=== PATIENT | female | born 1975 | race Hispanic/Latino ===

== ENCOUNTER 2020-08-26 18:22 | Inpatient (IN) | payer OTHER ==
[~2020-08-26] VITALS: Ht 165.1 cm; Wt 129.8 kg
[2020-08-26 18:37] LABS: ABG BASE EXCESS -3.5 mmol/L (-2.0-3.0); ABG HCO3 20.1 mmol/L (21.0-28.0); ABG OXYGEN SATURATION 86.7 % (95.0-99.0); ABG PCO2 33 mmHg (32-45)
[2020-08-26 19:17] LABS: BASOPHILS % (AUTO) 0.2 % (0.0-5.0); HEMATOCRIT 36.5 % (36-48); LYMPHOCYTES % (AUTO) 11.9 % (21.0-51.0); MEAN CORPUSCULAR HEMOGLOBIN 26.1 pg (27.0-33.0); MEAN CORPUSCULAR HGB CONC 31.8 g/dL (32.0-36.0); MEAN CORPUSCULAR VOLUME 82.2 fL (79-99); MONOCYTES % (AUTO) 3.5 % (3.0-13.0); NEUTROPHILS % (AUTO) 83.8 % (40.0-77.0); PLATELET COUNT (AUTO) 368 K/uL (130-400); RED BLOOD CELL COUNT(AUTO) 4.44 MIL/uL (4.00-5.50); RED CELL DISTRIBUTION WIDTH 14.9 % (11.0-15.5); WHITE BLOOD COUNT (AUTO) 12.6 K/uL (4.8-10.8)
[2020-08-26 19:35] LABS: INR 1.03 (0.85-1.15)
[2020-08-26 19:37] LABS: PARTIAL THROMBOPLASTIN TIME 27.6 SEC (26.3-35.5)
[2020-08-26] MEDS ORDERED: PHARMACY COMMUNICATION**REMDESIVIR ORDER MISC SCH (19:45)
[2020-08-26 19:51] LABS: ALANINE AMINOTRANSFERASE 18 U/L (12-78); ASPARTATE AMINOTRANSFERASE 25 U/L (10-37); BILIRUBIN,TOTAL 0.3 mg/dL (0.2-1.0); CARBON DIOXIDE 23 mmol/L (21-32); CHLORIDE 95 mmol/L (101-111); CREATINE KINASE, TOTAL 49 U/L (21-232); CREATININE 1.2 mg/dL (0.5-1.5); GLOMERULAR FILTR. RATE CALC 51 mL/min (>60); MYOGLOBIN 36 ng/mL (10-92); SODIUM SERUM 133 mmol/L (136-145); TOTAL PROTEIN, SERUM 8.4 g/dL (6.0-8.3); TROPONIN I < 0.04 ng/mL (0.00-0.06); UREA NITROGEN, BLOOD 15 mg/dL (7-18)
[2020-08-26 19:58] LABS: GLUCOSE,RANDOM 405 mg/dL (70-105)
[2020-08-26] MEDS ORDERED: LACTULOSE 20 GM/30 ML UDCUP PO PRN (20:00)
[2020-08-26] MEDS ORDERED: ACETAMINOPHEN 325 MG TAB PO PRN (20:00)
[2020-08-26] MEDS ORDERED: ERGOCALCIFEROL (VITAMIN D2) 50,000 UNIT CAPSULE PO ONE (20:00)
[2020-08-26] MEDS ORDERED: GUAIFENESIN-DM 200/20 MG 10 ML PO PRN (20:00)
[2020-08-26] MEDS: CEFEPIME HCL 2 GM VIAL IVP SCH (20:00)
[2020-08-26] MEDS ORDERED: DIPHENHYDRAMINE HCL 25 MG CAPSULE PO PRN (20:00)
[2020-08-26] MEDS ORDERED: ALBUTEROL SULFATE 0.083% 2.5 MG/3 ML INH IH PRN (20:00)
[2020-08-26] MEDS ORDERED: CEFTRIAXONE SODIUM 1 GM IVP SCH (20:00)
[2020-08-26] MEDS ORDERED: DEXAMETHASONE 10MG/ML 1ML VIAL 10 MG in SODIUM CHLORIDE 0.9% 50 ML IV SCH (20:00)
[2020-08-26] MEDS ORDERED: DiphenhydrAMINE HCL 50 MG/ML VIAL IV PRN (20:00)
[2020-08-26] MEDS ORDERED: NITROGLYCERIN 0.4 MG SL TAB SL PRN (20:00)
[2020-08-26] MEDS ORDERED: ONDANSETRON HCL 4 MG/2 ML VIAL IV PRN (20:00)
[2020-08-26] MEDS ORDERED: MAG HYDROX/AL HYDROX/SIMETH ES 30 ML SUSP UDCUP PO PRN (20:00)
[2020-08-26 20:02] LABS: ALBUMIN 2.6 g/dL (3.5-5.0)
[2020-08-26] MEDS ORDERED: DEXAMETHASONE SOD PHOSPHATE 10MG/ML 1ML VIAL IV SCH (20:15)
[2020-08-26] MEDS ORDERED: LINEZOLID 600 MG/ISO-OSM 300 ML IV SCH (20:15)
[2020-08-26] MEDS ORDERED: POTASSIUM CHLORIDE 10% ELIXIR 20 MEQ/15 ML UDCUP PO PRN (20:15)
[2020-08-26] MEDS ORDERED: DEXTROSE 50%-WATER 50 ML DISP.SYRIN IV PRN (20:15)
[2020-08-26] MEDS ORDERED: GLUCAGON 1MG KIT 1 MG ML IM PRN (20:15)
[2020-08-26] MEDS: INSULIN GLARGINE 100 UNITS/ML 10 ML VIAL SQ SCH ×2 (20:15→21:00)
[2020-08-26] MEDS ORDERED: POTASSIUM CHLORIDE 20MEQ/100ML 100 ML IV PRN ×2 (20:15)
[2020-08-26] MEDS ORDERED: VANCOMYCIN PROTOCOL PER PHARMACY IV SCH (20:30)
[2020-08-26] MEDS ORDERED: COMPOUND IV REFRIGERATED 1 EACH IVSOLN MISC PRN ×2 (20:30→21:30)
[2020-08-26 20:47] LABS: APPEARANCE,URINE Turbid (CLEAR); BILIRUBIN,URINE Negative (NEGATIVE); COLOR,URINE Dark Yellow (YELLOW); GLUCOSE, URINE (UA) >=1000 mg/dL (NEGATIVE); KETONES,URINE 15 mg/dL (NEGATIVE); LEUKOCYTE ESTERASE ,URINE Negative (NEGATIVE); NITRATE,URINE Positive (NEGATIVE); OCCULT BLOOD,URINE Large (NEGATIVE); PH,URINE 5.5 (5.0-8.0); PROTEIN,URINE 300 mg/dL (NEGATIVE)
[2020-08-26 20:53] LABS: BACTERIA,URINE Moderate /HPF (None Seen)
[2020-08-26 20:54] LABS: SQUAMOUS EPITHELIAL CELL,UR 0-2 /HPF (0-2)
[2020-08-26] MEDS: FAMOTIDINE/PF 20 MG/2 ML VIAL IV SCH (21:00)
[2020-08-26] MEDS: ENOXAPARIN SODIUM 80 MG/0.8 ML SQ SCH (21:00)
[2020-08-26] MEDS: INSULIN HUMULIN R 100 UNIT/ML 3ML SQ SCH (21:00)
[2020-08-26] MEDS: DOXYCYCLINE HYCLATE 100 MG TABLET PO SCH (21:00)
[2020-08-26] MEDS: VANCOMYCIN 1.5 GM in SODIUM CHLORIDE 0.9% 250 ML IV SCH (21:00)
[2020-08-26] MEDS: COLCHICINE 0.6 MG TABLET PO SCH (21:00)
[2020-08-26] MEDS ORDERED: DOXYCYCLINE HYCLATE 100 MG TABLET PO ONE (21:28)
[2020-08-26] MEDS ORDERED: ENOXAPARIN SODIUM 80 MG/0.8 ML SQ ONE (21:28)
[2020-08-26] MEDS ORDERED: ALBUTEROL INHALER 90MCG/INH IH ONE (21:28)
[2020-08-26] MEDS ORDERED: DEXAMETHASONE SOD PHOSPHATE 10MG/ML 1ML VIAL ONE (21:29)
[2020-08-26] MEDS ORDERED: ERGOCALCIFEROL (VITAMIN D2) 50,000 UNIT CAPSULE ONE (21:29)
[2020-08-26] MEDS ORDERED: CEFEPIME HCL 2 GM VIAL ONE (21:30)
[2020-08-26] MEDS ORDERED: CEFTRIAXONE SODIUM 1 GM ONE (21:30)
[2020-08-26] MEDS ORDERED: REMDESIVIR (EUA) 520 200 MG in SODIUM CHLORIDE 0.9% 250 ML IV SCH (21:30)
[2020-08-26] MEDS ORDERED: FAMOTIDINE/PF 20 MG/2 ML VIAL IV ONE (21:31)
[2020-08-26] MEDS ORDERED: INSULIN HUMULIN R 100 UNIT/ML 3ML ONE (21:32)
[2020-08-26] MEDS: FUROSEMIDE 10 MG/ML 2ML VIAL IV SCH (22:15)
[2020-08-26] MEDS ORDERED: FUROSEMIDE 10 MG/ML 2ML VIAL ONE (23:56)
[2020-08-27] MEDS ORDERED: ACETAMINOPHEN 325 MG TAB ONE (03:31)
[2020-08-27] MEDS: REMDESIVIR LABS MISC SCH (06:00)
[2020-08-27 06:07] LABS: BASOPHILS % (AUTO) 0.2 % (0.0-5.0); HEMATOCRIT 33.9 % (36-48); LYMPHOCYTES % (AUTO) 11.8 % (21.0-51.0); MEAN CORPUSCULAR HEMOGLOBIN 25.6 pg (27.0-33.0); MEAN CORPUSCULAR HGB CONC 30.4 g/dL (32.0-36.0); MEAN CORPUSCULAR VOLUME 84.1 fL (79-99); MONOCYTES % (AUTO) 2.6 % (3.0-13.0); NEUTROPHILS % (AUTO) 84.5 % (40.0-77.0); PLATELET COUNT (AUTO) 358 K/uL (130-400); RED BLOOD CELL COUNT(AUTO) 4.03 MIL/uL (4.00-5.50); RED CELL DISTRIBUTION WIDTH 15.1 % (11.0-15.5)
[2020-08-27] MEDS ORDERED: INSULIN HUMULIN R 100 UNIT/ML 3ML ONE ×4 (06:12→17:17)
[2020-08-27 06:30] LABS: ALBUMIN 2.4 g/dL (3.5-5.0); BILIRUBIN,TOTAL 0.2 mg/dL (0.2-1.0); CREATININE 1.2 mg/dL (0.5-1.5); POTASSIUM 4.7 mmol/L (3.5-5.1)
[2020-08-27 07:05] LABS: CRP QUANTITATIVE 313.2 mg/L (0.00-9.0)
[2020-08-27] MEDS ORDERED: INSULIN HUMULIN R 100 UNIT/ML 3ML SQ SCH (07:30)
[2020-08-27] MEDS: INSULIN HUMULIN R 100 UNIT/ML 3ML SQ SCH (07:30)
[2020-08-27] MEDS: DEXAMETHASONE SOD PHOSPHATE 4 MG/ML 1ML VIAL IVP SCH (08:00)
[2020-08-27] MEDS ORDERED: ASCORBIC ACID 500 MG TAB ONE (08:51)
[2020-08-27] MEDS ORDERED: DOXYCYCLINE HYCLATE 100 MG TABLET PO ONE (08:51)
[2020-08-27] MEDS ORDERED: DEXAMETHASONE SOD PHOSPHATE 10MG/ML 1ML VIAL ONE (08:51)
[2020-08-27] MEDS ORDERED: ENOXAPARIN SODIUM 80 MG/0.8 ML SQ ONE (08:51)
[2020-08-27] MEDS ORDERED: VANCOMYCIN 1GM+NS 250ML 250 ML IV ONE (08:52)
[2020-08-27] MEDS ORDERED: ZINC SULFATE 220 CAPSULE ONE (08:52)
[2020-08-27] MEDS ORDERED: FAMOTIDINE/PF 20 MG/2 ML VIAL IV ONE (08:53)
[2020-08-27] MEDS: VANCOMYCIN 1.5 GM in SODIUM CHLORIDE 0.9% 250 ML IV SCH (09:00)
[2020-08-27] MEDS: INSULIN GLARGINE 100 UNITS/ML 10 ML VIAL SQ SCH ×2 (09:00→21:00)
[2020-08-27] MEDS: FAMOTIDINE/PF 20 MG/2 ML VIAL IV SCH (09:00)
[2020-08-27] MEDS: DOXYCYCLINE HYCLATE 100 MG TABLET PO SCH (21:00)
[2020-08-27] MEDS: COLCHICINE 0.6 MG TABLET PO SCH (21:00)
[2020-08-28] VITALS: BP 131/77
[2020-08-28] MEDS: CEFEPIME HCL 2 GM VIAL IVP SCH ×2 (01:45→22:44)
[2020-08-28] MEDS: FUROSEMIDE 10 MG/ML 2ML VIAL IV SCH ×2 (01:46→22:15)
[2020-08-28] MEDS: VANCOMYCIN 1.5 GM in SODIUM CHLORIDE 0.9% 250 ML IV SCH ×3 (01:47→22:46)
[2020-08-28] MEDS: FAMOTIDINE/PF 20 MG/2 ML VIAL IV SCH ×3 (01:47→10:13)
[2020-08-28] MEDS: ENOXAPARIN SODIUM 80 MG/0.8 ML SQ SCH ×3 (02:04→22:45)
[2020-08-28 03:43] VITALS: BP 124/76
[2020-08-28] MEDS: REMDESIVIR LABS MISC SCH (06:00)
[2020-08-28 06:15] LABS: BASOPHILS % (AUTO) 0.2 % (0.0-5.0); EOSINOPHILS % (AUTO) 0.1 % (0.0-8.0); HEMATOCRIT 34.6 % (36-48); LYMPHOCYTES % (AUTO) 16.8 % (21.0-51.0); MEAN CORPUSCULAR HGB CONC 31.2 g/dL (32.0-36.0); MEAN CORPUSCULAR VOLUME 83.2 fL (79-99); PLATELET COUNT (AUTO) 472 K/uL (130-400); RED BLOOD CELL COUNT(AUTO) 4.16 MIL/uL (4.00-5.50); RED CELL DISTRIBUTION WIDTH 14.8 % (11.0-15.5); WHITE BLOOD COUNT (AUTO) 13.4 K/uL (4.8-10.8)
[2020-08-28 07:01] LABS: CRP QUANTITATIVE 173.7 mg/L (0.00-9.0)
[2020-08-28 07:02] LABS: ABG BASE EXCESS 3.8 mmol/L (-2.0-3.0); ABG OXYGEN SATURATION 90.9 % (95.0-99.0); ABG PCO2 41 mmHg (32-45)
[2020-08-28 07:16] LABS: ALBUMIN 2.5 g/dL (3.5-5.0); BILIRUBIN,TOTAL 0.3 mg/dL (0.2-1.0); CREATININE 1.3 mg/dL (0.5-1.5); POTASSIUM 3.3 mmol/L (3.5-5.1); TOTAL PROTEIN, SERUM 7.9 g/dL (6.0-8.3)
[2020-08-28] MEDS: INSULIN HUMULIN R 100 UNIT/ML 3ML SQ SCH ×7 (07:30→20:50)
[2020-08-28 08:00] VITALS: BP 137/88
[2020-08-28] MEDS: INSULIN GLARGINE 100 UNITS/ML 10 ML VIAL SQ SCH (09:00)
[2020-08-28] MEDS ORDERED: BUPR-48 PO (09:16)
[2020-08-28] MEDS ORDERED: NALT50TA PO (09:16)
[2020-08-28] MEDS ORDERED: GLIP10TA9 PO (09:16)
[2020-08-28] MEDS ORDERED: NALT50TA5 PO (09:16)
[2020-08-28] MEDS ORDERED: CHOL500050 PO (09:16)
[2020-08-28] MEDS ORDERED: LISI1TAB51 PO (09:16)
[2020-08-28] MEDS ORDERED: METF-446 PO (09:16)
[2020-08-28] MEDS ORDERED: ROSU5TAB12 PO (09:16)
[2020-08-28] MEDS ORDERED: LISI40TA9 PO (09:16)
[2020-08-28] MEDS: ASCORBIC ACID 500 MG TAB PO SCH ×2 (10:02→10:12)
[2020-08-28] MEDS: ZINC SULFATE 220 CAPSULE PO SCH ×2 (10:03→10:12)
[2020-08-28] MEDS: DOXYCYCLINE HYCLATE 100 MG TABLET PO SCH ×3 (10:03→22:45)
[2020-08-28] MEDS: COLCHICINE 0.6 MG TABLET PO SCH ×3 (10:03→22:45)
[2020-08-28] MEDS: DEXAMETHASONE SOD PHOSPHATE 4 MG/ML 1ML VIAL IVP SCH ×2 (10:05→10:12)
[2020-08-28] MEDS ORDERED: INSULIN GLARGINE 100 UNITS/ML 10 ML VIAL SQ SCH (10:15)
[2020-08-28 12:00] VITALS: BP 132/82
[2020-08-28] MEDS: REMDESIVIR (EUA) 520 100 MG in SODIUM CHLORIDE 0.9% 250 ML IV SCH ×2 (14:17→18:32)
[2020-08-28 16:00] VITALS: BP 134/76
[2020-08-28 20:42] VITALS: BP 130/79
[2020-08-29 00:35] VITALS: BP 141/80
[2020-08-29 05:25] LABS: BASOPHILS % (AUTO) 0.3 % (0.0-5.0); EOSINOPHILS % (AUTO) 0.2 % (0.0-8.0); HEMATOCRIT 33.8 % (36-48); LYMPHOCYTES % (AUTO) 17.6 % (21.0-51.0); MEAN CORPUSCULAR HEMOGLOBIN 25.4 pg (27.0-33.0); MEAN CORPUSCULAR HGB CONC 30.5 g/dL (32.0-36.0); MEAN CORPUSCULAR VOLUME 83.5 fL (79-99); MONOCYTES % (AUTO) 7.4 % (3.0-13.0); NEUTROPHILS % (AUTO) 73.1 % (40.0-77.0); PLATELET COUNT (AUTO) 463 K/uL (130-400); RED BLOOD CELL COUNT(AUTO) 4.05 MIL/uL (4.00-5.50); RED CELL DISTRIBUTION WIDTH 14.7 % (11.0-15.5); WHITE BLOOD COUNT (AUTO) 12.7 K/uL (4.8-10.8)
[2020-08-29 05:42] LABS: ALBUMIN 2.2 g/dL (3.5-5.0); BILIRUBIN,TOTAL 0.3 mg/dL (0.2-1.0); CREATININE 1.4 mg/dL (0.5-1.5); CRP QUANTITATIVE 98.8 mg/L (0.00-9.0); POTASSIUM 3.3 mmol/L (3.5-5.1); TOTAL PROTEIN, SERUM 7.4 g/dL (6.0-8.3)
[2020-08-29] MEDS: REMDESIVIR LABS MISC SCH (06:00)
[2020-08-29 06:16] VITALS: BP 153/77
[2020-08-29] MEDS: INSULIN HUMULIN R 100 UNIT/ML 3ML SQ SCH ×7 (07:30→22:23)
[2020-08-29 08:33] VITALS: BP 133/70
[2020-08-29] MEDS: INSULIN GLARGINE 100 UNITS/ML 10 ML VIAL SQ SCH ×2 (09:00→10:00)
[2020-08-29] MEDS: VANCOMYCIN 1.5 GM in SODIUM CHLORIDE 0.9% 250 ML IV SCH (09:00)
[2020-08-29] MEDS: DOXYCYCLINE HYCLATE 100 MG TABLET PO SCH ×2 (10:20→22:21)
[2020-08-29] MEDS: ZINC SULFATE 220 CAPSULE PO SCH (10:20)
[2020-08-29] MEDS: COLCHICINE 0.6 MG TABLET PO SCH (10:20)
[2020-08-29] MEDS: FAMOTIDINE/PF 20 MG/2 ML VIAL IV SCH ×3 (10:21→22:26)
[2020-08-29] MEDS: ENOXAPARIN SODIUM 80 MG/0.8 ML SQ SCH ×2 (10:21→22:21)
[2020-08-29] MEDS: ASCORBIC ACID 500 MG TAB PO SCH (10:21)
[2020-08-29] MEDS ORDERED: POTASSIUM CHLORIDE 20 MEQ ERTAB PO SCH (11:45)
[2020-08-29] MEDS ORDERED: POTASSIUM CHLORIDE 10% ELIXIR 20 MEQ/15 ML UDCUP PO PRN (11:45)
[2020-08-29] MEDS ORDERED: POTASSIUM CHLORIDE 20 MEQ ERTAB PO PRN (11:45)
[2020-08-29] MEDS ORDERED: LIDOCAINE HCL-MPF 1% 2ML VIAL IV PRN (11:45)
[2020-08-29] MEDS ORDERED: POTASSIUM CHLORIDE 20MEQ/100ML 100 ML IV PRN (11:45)
[2020-08-29 12:20] VITALS: BP 137/85
[2020-08-29 16:34] VITALS: BP 127/48
[2020-08-29 19:00] VITALS: BP 135/77
[2020-08-29] MEDS ORDERED: INSULIN GLARGINE 100 UNITS/ML 10 ML VIAL SQ SCH (21:00)
[2020-08-29] MEDS: FUROSEMIDE 10 MG/ML 2ML VIAL IV SCH (22:15)
[2020-08-29] MEDS: CEFEPIME HCL 2 GM VIAL IVP SCH (22:20)
[2020-08-29] MEDS: REMDESIVIR (EUA) 520 100 MG in SODIUM CHLORIDE 0.9% 250 ML IV SCH (22:21)
[2020-08-30] VITALS: BP 138/77
[2020-08-30] MEDS ORDERED: LORAZEPAM 2 MG/ML 1 ML VIAL IVP PRN (01:50)
[2020-08-30 04:00] VITALS: BP 112/63
[2020-08-30 05:24] LABS: CREATININE 1.2 mg/dL (0.5-1.5); MAGNESIUM 1.7 mg/dL (1.80-2.40); POTASSIUM 3.1 mmol/L (3.5-5.1)
[2020-08-30] MEDS: REMDESIVIR LABS MISC SCH (06:00)
[2020-08-30 06:15] LABS: BASOPHILS % (AUTO) 0.2 % (0.0-5.0); EOSINOPHILS % (AUTO) 1.2 % (0.0-8.0); HEMATOCRIT 33.3 % (36-48); LYMPHOCYTES % (AUTO) 15.5 % (21.0-51.0); MEAN CORPUSCULAR HEMOGLOBIN 25.8 pg (27.0-33.0); MEAN CORPUSCULAR HGB CONC 30.9 g/dL (32.0-36.0); MEAN CORPUSCULAR VOLUME 83.3 fL (79-99); MONOCYTES % (AUTO) 6.3 % (3.0-13.0); NEUTROPHILS % (AUTO) 75.7 % (40.0-77.0); PLATELET COUNT (AUTO) 514 K/uL (130-400); RED CELL DISTRIBUTION WIDTH 14.8 % (11.0-15.5); WHITE BLOOD COUNT (AUTO) 12.6 K/uL (4.8-10.8)
[2020-08-30 06:41] LABS: ALBUMIN 2.1 g/dL (3.5-5.0); BILIRUBIN,TOTAL 0.3 mg/dL (0.2-1.0); CRP QUANTITATIVE 151.8 mg/L (0.00-9.0); TOTAL PROTEIN, SERUM 7.2 g/dL (6.0-8.3)
[2020-08-30] MEDS: INSULIN HUMULIN R 100 UNIT/ML 3ML SQ SCH ×7 (07:30→20:22)
[2020-08-30 09:06] VITALS: BP 136/85
[2020-08-30] MEDS: ASCORBIC ACID 500 MG TAB PO SCH (09:51)
[2020-08-30] MEDS: DOXYCYCLINE HYCLATE 100 MG TABLET PO SCH ×2 (09:51→20:19)
[2020-08-30] MEDS: ZINC SULFATE 220 CAPSULE PO SCH (09:51)
[2020-08-30] MEDS: DEXAMETHASONE SOD PHOSPHATE 4 MG/ML 1ML VIAL IVP SCH (09:51)
[2020-08-30] MEDS: ENOXAPARIN SODIUM 80 MG/0.8 ML SQ SCH ×2 (09:52→20:29)
[2020-08-30] MEDS ORDERED: LORAZEPAM 0.5 MG TABLET PO SCH (10:00)
[2020-08-30 11:52] VITALS: BP 135/83
[2020-08-30] MEDS: POTASSIUM CHLORIDE 20 MEQ ERTAB PO PRN ×2 (14:23→17:06)
[2020-08-30 15:57] VITALS: BP 111/72
[2020-08-30 20:00] VITALS: BP 115/80
[2020-08-30] MEDS: FAMOTIDINE/PF 20 MG/2 ML VIAL IV SCH (20:19)
[2020-08-30] MEDS: CEFEPIME HCL 2 GM VIAL IVP SCH (20:19)
[2020-08-30] MEDS: LORAZEPAM 0.5 MG TABLET PO SCH (20:19)
[2020-08-30] MEDS: REMDESIVIR (EUA) 520 100 MG in SODIUM CHLORIDE 0.9% 250 ML IV SCH (20:30)
[2020-08-30] MEDS: FUROSEMIDE 10 MG/ML 2ML VIAL IV SCH (21:07)
[2020-08-31] VITALS: BP 130/68
[2020-08-31 04:00] VITALS: BP 133/58
[2020-08-31] MEDS: REMDESIVIR LABS MISC SCH (06:22)
[2020-08-31] MEDS: INSULIN HUMULIN R 100 UNIT/ML 3ML SQ SCH ×7 (06:22→21:19)
[2020-08-31 06:37] LABS: BASOPHILS % (AUTO) 0.2 % (0.0-5.0); EOSINOPHILS % (AUTO) 2.1 % (0.0-8.0); HEMATOCRIT 33.8 % (36-48); LYMPHOCYTES % (AUTO) 9.6 % (21.0-51.0); MEAN CORPUSCULAR HEMOGLOBIN 25.2 pg (27.0-33.0); MEAN CORPUSCULAR HGB CONC 30.5 g/dL (32.0-36.0); MEAN CORPUSCULAR VOLUME 82.8 fL (79-99); MONOCYTES % (AUTO) 5.8 % (3.0-13.0); NEUTROPHILS % (AUTO) 80.8 % (40.0-77.0); PLATELET COUNT (AUTO) 538 K/uL (130-400); RED BLOOD CELL COUNT(AUTO) 4.08 MIL/uL (4.00-5.50); RED CELL DISTRIBUTION WIDTH 14.8 % (11.0-15.5); WHITE BLOOD COUNT (AUTO) 16.3 K/uL (4.8-10.8)
[2020-08-31 06:58] LABS: BILIRUBIN,TOTAL 0.2 mg/dL (0.2-1.0); CREATININE 1.4 mg/dL (0.5-1.5); POTASSIUM 3.5 mmol/L (3.5-5.1); TOTAL PROTEIN, SERUM 7.3 g/dL (6.0-8.3)
[2020-08-31 07:17] LABS: CRP QUANTITATIVE 193.4 mg/L (0.00-9.0)
[2020-08-31 08:00] VITALS: BP 143/73
[2020-08-31] MEDS: INSULIN GLARGINE 100 UNITS/ML 10 ML VIAL SQ SCH (09:00)
[2020-08-31] MEDS: DEXAMETHASONE SOD PHOSPHATE 4 MG/ML 1ML VIAL IVP SCH (09:27)
[2020-08-31] MEDS: FAMOTIDINE/PF 20 MG/2 ML VIAL IV SCH ×2 (09:30→20:33)
[2020-08-31] MEDS: ZINC SULFATE 220 CAPSULE PO SCH (09:34)
[2020-08-31] MEDS: ACETAMINOPHEN 325 MG TAB PO PRN (09:34)
[2020-08-31] MEDS: DOXYCYCLINE HYCLATE 100 MG TABLET PO SCH (09:34)
[2020-08-31] MEDS: ASCORBIC ACID 500 MG TAB PO SCH (09:35)
[2020-08-31] MEDS: ENOXAPARIN SODIUM 80 MG/0.8 ML SQ SCH ×2 (09:36→20:35)
[2020-08-31] MEDS ORDERED: PHARMACY COMMUNICATION MISC SCH (10:30)
[2020-08-31 12:00] VITALS: BP 123/60
[2020-08-31] MEDS ORDERED: VANCOMYCIN 1.5 GM in SODIUM CHLORIDE 0.9% 250 ML IV SCH (12:00)
[2020-08-31] MEDS ORDERED: COMPOUND IV REFRIGERATED 1 EACH IVSOLN MISC PRN (12:00)
[2020-08-31] MEDS ORDERED: INSULIN GLARGINE 100 UNITS/ML 10 ML VIAL SQ SCH (12:00)
[2020-08-31] MEDS: FUROSEMIDE 10 MG/ML 2ML VIAL IV SCH ×2 (14:31→21:57)
[2020-08-31 15:45] LABS: APPEARANCE,URINE Cloudy (CLEAR); BILIRUBIN,URINE Negative (NEGATIVE); COLOR,URINE Yellow (YELLOW); GLUCOSE, URINE (UA) Negative (NEGATIVE); KETONES,URINE Negative (NEGATIVE); LEUKOCYTE ESTERASE ,URINE Negative (NEGATIVE); NITRATE,URINE Negative (NEGATIVE); OCCULT BLOOD,URINE Moderate (NEGATIVE); PH,URINE 5.5 (5.0-8.0); PROTEIN,URINE POS 1+ mg/dL (NEGATIVE); UROBILINOGEN,URINE 0.2 mg/dL (0.2-1.0)
[2020-08-31 16:00] VITALS: BP 107/59
[2020-08-31 16:05] LABS: BACTERIA,URINE Rare /HPF (None Seen); RBC,URINE 0-1 /HPF (0-1); WBC,URINE 0-1 /HPF (0-1)
[2020-08-31 16:06] LABS: MUCUS,URINE Rare LPF (None Seen); SQUAMOUS EPITHELIAL CELL,UR Few /HPF (0-2)
[2020-08-31 17:12] LABS: CREATININE 1.7 mg/dL (0.5-1.5); POTASSIUM 4.5 mmol/L (3.5-5.1)
[2020-08-31 20:00] VITALS: BP 118/65
[2020-08-31] MEDS: LORAZEPAM 0.5 MG TABLET PO SCH (20:33)
[2020-08-31] MEDS: CEFEPIME HCL 2 GM VIAL IVP SCH (20:33)
[2020-09-01] VITALS: BP 130/72
[2020-09-01 03:36] LABS: ABG BASE EXCESS -3.4 mmol/L (-2.0-3.0); ABG HCO3 21.3 mmol/L (21.0-28.0); ABG OXYGEN SATURATION 91.2 % (95.0-99.0); ABG PCO2 38 mmHg (32-45)
[2020-09-01 04:00] VITALS: BP 122/65
[2020-09-01 05:40] LABS: BASOPHILS % (AUTO) 0.3 % (0.0-5.0); EOSINOPHILS % (AUTO) 4.4 % (0.0-8.0); LYMPHOCYTES % (AUTO) 7.1 % (21.0-51.0); MEAN CORPUSCULAR HEMOGLOBIN 25.8 pg (27.0-33.0); MEAN CORPUSCULAR HGB CONC 30.9 g/dL (32.0-36.0); MEAN CORPUSCULAR VOLUME 83.7 fL (79-99); MONOCYTES % (AUTO) 5.1 % (3.0-13.0); NEUTROPHILS % (AUTO) 81.6 % (40.0-77.0); PLATELET COUNT (AUTO) 635 K/uL (130-400); RED BLOOD CELL COUNT(AUTO) 4.18 MIL/uL (4.00-5.50); WHITE BLOOD COUNT (AUTO) 17.7 K/uL (4.8-10.8)
[2020-09-01] MEDS: FUROSEMIDE 10 MG/ML 2ML VIAL IV SCH (05:44)
[2020-09-01] MEDS: INSULIN HUMULIN R 100 UNIT/ML 3ML SQ SCH ×7 (05:46→20:33)
[2020-09-01 05:56] LABS: BILIRUBIN,TOTAL 0.3 mg/dL (0.2-1.0); CREATININE 1.8 mg/dL (0.5-1.5); POTASSIUM 3.7 mmol/L (3.5-5.1); TOTAL PROTEIN, SERUM 7.7 g/dL (6.0-8.3)
[2020-09-01 06:28] LABS: CRP QUANTITATIVE 244.2 mg/L (0.00-9.0)
[2020-09-01 08:15] VITALS: BP 117/92
[2020-09-01] MEDS: ZINC SULFATE 220 CAPSULE PO SCH (09:43)
[2020-09-01] MEDS: FAMOTIDINE/PF 20 MG/2 ML VIAL IV SCH ×2 (09:43→20:25)
[2020-09-01] MEDS: ASCORBIC ACID 500 MG TAB PO SCH (09:43)
[2020-09-01] MEDS: DEXAMETHASONE SOD PHOSPHATE 4 MG/ML 1ML VIAL IVP SCH (09:44)
[2020-09-01] MEDS: INSULIN GLARGINE 100 UNITS/ML 10 ML VIAL SQ SCH (09:49)
[2020-09-01] MEDS: ENOXAPARIN SODIUM 80 MG/0.8 ML SQ SCH ×2 (09:49→20:42)
[2020-09-01] MEDS: VANCOMYCIN 750MG + NS 250 ML IV SCH ×4 (09:51→20:41)
[2020-09-01] MEDS ORDERED: FUROSEMIDE 10 MG/ML 4ML VIAL IV SCH (10:55)
[2020-09-01] MEDS ORDERED: FUROSEMIDE 10 MG/ML 4ML VIAL ONE (11:29)
[2020-09-01 12:00] VITALS: BP 123/64
[2020-09-01] MEDS ORDERED: MORPHINE SULFATE 2 MG/ML 1ML SYG IM SCH (14:00)
[2020-09-01 14:02] LABS: PROTEIN,URINE RANDOM 49.5 mg/dL (0-11.9)
[2020-09-01 16:15] VITALS: BP 133/63
[2020-09-01] MEDS ORDERED: MORPHINE SULFATE 2 MG/ML 1ML SYG IM PRN (16:30)
[2020-09-01] MEDS: MORPHINE SULFATE 2 MG/ML 1ML SYG IV PRN (17:32)
[2020-09-01] MEDS ORDERED: MORPHINE SULFATE 2 MG/ML 1ML SYG IV PRN (17:45)
[2020-09-01 20:00] VITALS: BP 128/65
[2020-09-01] MEDS: CEFEPIME HCL 2 GM VIAL IVP SCH (20:25)
[2020-09-01] MEDS: LORAZEPAM 0.5 MG TABLET PO SCH (20:26)
[2020-09-02] VITALS (30 sets, daily range): BP systolic 73–135; BP diastolic 46–73
[2020-09-02] MEDS: MORPHINE SULFATE 2 MG/ML 1ML SYG IV PRN (02:13)
[2020-09-02 03:26] LABS: ABG BASE EXCESS -5.5 mmol/L (-2.0-3.0); ABG HCO3 21.4 mmol/L (21.0-28.0); ABG OXYGEN SATURATION 85.8 % (95.0-99.0); ABG PCO2 47 mmHg (32-45)
[2020-09-02] MEDS ORDERED: LORAZEPAM 2 MG/ML 1 ML VIAL IVP PRN ×2 (04:30)
[2020-09-02] MEDS ORDERED: LORAZEPAM 2 MG/ML 1 ML VIAL ONE (04:39)
[2020-09-02 06:18] LABS: BASOPHILS % (AUTO) 0.3 % (0.0-5.0); EOSINOPHILS % (AUTO) 2.6 % (0.0-8.0); HEMATOCRIT 35.5 % (36-48); MEAN CORPUSCULAR HEMOGLOBIN 25.7 pg (27.0-33.0); MEAN CORPUSCULAR HGB CONC 30.1 g/dL (32.0-36.0); MEAN CORPUSCULAR VOLUME 85.1 fL (79-99); MONOCYTES % (AUTO) 5.2 % (3.0-13.0); NEUTROPHILS % (AUTO) 86.3 % (40.0-77.0); PLATELET COUNT (AUTO) 600 K/uL (130-400); RED BLOOD CELL COUNT(AUTO) 4.17 MIL/uL (4.00-5.50); RED CELL DISTRIBUTION WIDTH 15.2 % (11.0-15.5)
[2020-09-02] MEDS: INSULIN HUMULIN R 100 UNIT/ML 3ML SQ SCH ×7 (06:29→22:24)
[2020-09-02 06:41] LABS: ALANINE AMINOTRANSFERASE 13 U/L (12-78); ASPARTATE AMINOTRANSFERASE 23 U/L (10-37); BILIRUBIN,TOTAL 0.5 mg/dL (0.2-1.0); CARBON DIOXIDE 22 mmol/L (21-32); CHLORIDE 107 mmol/L (101-111); CREATINE KINASE, TOTAL 35 U/L (21-232); CREATININE 2.8 mg/dL (0.5-1.5); GLOMERULAR FILTR. RATE CALC 19 mL/min (>60); GLUCOSE,RANDOM 241 mg/dL (70-105); MYOGLOBIN 105 ng/mL (10-92); SODIUM SERUM 144 mmol/L (136-145); TOTAL PROTEIN, SERUM 7.8 g/dL (6.0-8.3); TROPONIN I < 0.04 ng/mL (0.00-0.06); UREA NITROGEN, BLOOD 57 mg/dL (7-18)
[2020-09-02 07:36] LABS: ERYTHROCYTE SEDIMENTATION RATE 130 MM/HR (0-20)
[2020-09-02] MEDS: DEXAMETHASONE SOD PHOSPHATE 4 MG/ML 1ML VIAL IVP SCH (07:46)
[2020-09-02] MEDS: ASCORBIC ACID 500 MG TAB PO SCH (07:46)
[2020-09-02] MEDS: FAMOTIDINE/PF 20 MG/2 ML VIAL IV SCH ×2 (07:46→22:27)
[2020-09-02] MEDS: ZINC SULFATE 220 CAPSULE PO SCH (07:46)
[2020-09-02] MEDS: ENOXAPARIN SODIUM 80 MG/0.8 ML SQ SCH ×2 (07:47→22:27)
[2020-09-02] MEDS: INSULIN GLARGINE 100 UNITS/ML 10 ML VIAL SQ SCH (07:48)
[2020-09-02] MEDS ORDERED: FUROSEMIDE 10 MG/ML 4ML VIAL IV ONE ×2 (13:45→21:00)
[2020-09-02 14:55] LABS: ABG BASE EXCESS -6.8 mmol/L (-2.0-3.0); ABG HCO3 17.6 mmol/L (21.0-28.0); ABG OXYGEN SATURATION 83.6 % (95.0-99.0); ABG PCO2 33 mmHg (32-45)
[2020-09-02] MEDS ORDERED: FENTANYL CITRATE PF 50 MCG/1 ML 5ML AMP IV ONE (15:21)
[2020-09-02] MEDS ORDERED: FENTANYL 2500MCG+NS 250ML 250 ML IV ONE (15:36)
[2020-09-02] MEDS ORDERED: SODIUM CHLORIDE 0.9% 500ML 500 ML IV ONE ×2 (15:58→16:02)
[2020-09-02 15:59] LABS: ABG HCO3 17.5 mmol/L (21.0-28.0); ABG OXYGEN SATURATION 78.6 % (95.0-99.0); ABG PCO2 48 mmHg (32-45)
[2020-09-02] MEDS ORDERED: 1/2 NORMAL SALINE 1,000 ML IV ONE (15:59)
[2020-09-02] MEDS ORDERED: PHARMACY COMMUNICATION MISC SCH (16:30)
[2020-09-02] MEDS ORDERED: PROPOFOL 1000 MG/100 ML 100 ML IV PRN (16:30)
[2020-09-02] MEDS ORDERED: FENTANYL CITRATE PF 0.05 MG/ML 1,000 MCG in SODIUM CHLORIDE 0.9% 100 ML IV PRN (16:30)
[2020-09-02] MEDS: PROPOFOL 1000 MG/100 ML 100 ML IV SCH ×2 (20:35→23:32)
[2020-09-02] MEDS ORDERED: NOREPINEPHRINE 4MG/NS 250ML 250 ML IV SCH (21:00)
[2020-09-02] MEDS ORDERED: NOREPINEPHRINE BITARTRATE 8 MG/NS 250ML IV SCH ×2 (21:15)
[2020-09-02] MEDS: LORAZEPAM 0.5 MG TABLET PO SCH (22:27)
[2020-09-02] MEDS: CEFEPIME HCL 2 GM VIAL IVP SCH (22:30)
[2020-09-03] VITALS (98 sets, daily range): BP systolic 68–136; BP diastolic 41–75
[2020-09-03] MEDS ORDERED: VASOPRESSIN 20 UNITS/ML 1ML VIAL ONE ×2 (03:10→03:14)
[2020-09-03] MEDS: PROPOFOL 1000 MG/100 ML 100 ML IV SCH ×2 (03:35→08:02)
[2020-09-03 05:10] LABS: BASOPHILS % (AUTO) 0.3 % (0.0-5.0); HEMATOCRIT 35.6 % (36-48); LYMPHOCYTES % (AUTO) 6.4 % (21.0-51.0); MEAN CORPUSCULAR HEMOGLOBIN 25.5 pg (27.0-33.0); MEAN CORPUSCULAR HGB CONC 28.7 g/dL (32.0-36.0); MONOCYTES % (AUTO) 4.1 % (3.0-13.0); PLATELET COUNT (AUTO) 601 K/uL (130-400); RED CELL DISTRIBUTION WIDTH 15.6 % (11.0-15.5); WHITE BLOOD COUNT (AUTO) 23.2 K/uL (4.8-10.8)
[2020-09-03 05:39] LABS: BILIRUBIN,TOTAL 0.3 mg/dL (0.2-1.0); CREATININE 4.5 mg/dL (0.5-1.5); POTASSIUM 4.9 mmol/L (3.5-5.1); TOTAL PROTEIN, SERUM 7.7 g/dL (6.0-8.3)
[2020-09-03 07:00] LABS: ABG BASE EXCESS -10.5 mmol/L (-2.0-3.0); ABG HCO3 19.3 mmol/L (21.0-28.0); ABG OXYGEN SATURATION 91.2 % (95.0-99.0); ABG PCO2 59 mmHg (32-45)
[2020-09-03] MEDS: INSULIN HUMULIN R 100 UNIT/ML 3ML SQ SCH ×5 (07:30→22:50)
[2020-09-03] MEDS: DEXAMETHASONE SOD PHOSPHATE 4 MG/ML 1ML VIAL IVP SCH (07:50)
[2020-09-03] MEDS: FAMOTIDINE/PF 20 MG/2 ML VIAL IV SCH ×2 (07:50→22:51)
[2020-09-03] MEDS: ASCORBIC ACID 500 MG TAB PO SCH (07:51)
[2020-09-03] MEDS: ZINC SULFATE 220 CAPSULE PO SCH (07:51)
[2020-09-03] MEDS: ENOXAPARIN SODIUM 80 MG/0.8 ML SQ SCH (07:54)
[2020-09-03] MEDS: INSULIN GLARGINE 100 UNITS/ML 10 ML VIAL SQ SCH (07:57)
[2020-09-03 11:39] LABS: INR 1.17 (0.85-1.15); PROTHROMBIN TIME 12.6 SEC (9.6-11.6)
[2020-09-03 11:40] LABS: PARTIAL THROMBOPLASTIN TIME 31.9 SEC (26.3-35.5)
[2020-09-03] MEDS: MIDAZOLAM 100MG-0.9% NS 100ML 100ML BAG IV PRN ×2 (12:06→21:14)
[2020-09-03] MEDS ORDERED: FUROSEMIDE 10 MG/ML 10ML VIAL ONE (14:22)
[2020-09-03] MEDS ORDERED: FUROSEMIDE 100 MG in SODIUM CHLORIDE 0.9% 100 ML IV SCH (14:30)
[2020-09-03] MEDS ORDERED: PHARMACY COMMUNICATION MISC SCH (14:30)
[2020-09-03] MEDS ORDERED: SODIUM BICARB 50MEQ 50ML VIAL 150 MEQ in WATER FOR INJECTION,STERILE 1,000 ML IV SCH (15:00)
[2020-09-03] MEDS ORDERED: FUROSEMIDE 10 MG/ML 10ML VIAL IVP SCH ×2 (15:30)
[2020-09-03 16:00] LABS: HEMATOCRIT 36.3 % (36-48)
[2020-09-03 16:16] LABS: ALBUMIN 1.9 g/dL (3.5-5.0); CREATININE 5.7 mg/dL (0.5-1.5)
[2020-09-03 16:32] LABS: HEMOGLOBIN A1C 10.4 % (4.0-6.0)
[2020-09-03 17:18] LABS: % IRON SATURATION 19.5 % (22-44)
[2020-09-03] MEDS: ACETAMINOPHEN 325 MG TAB PO PRN (17:34)
[2020-09-03] MEDS ORDERED: 0.9% SODIUM CHLORIDE 1000 ML IV BAG IV PRN (18:30)
[2020-09-03] MEDS ORDERED: SODIUM CHLORIDE 0.9% 1000ML 1,000 ML IV PRN (18:30)
[2020-09-03] MEDS ORDERED: HEPARIN SODIUM 5000UNIT/ML 1ML VIAL IJ PRN (18:30)
[2020-09-03] MEDS ORDERED: LIDOCAINE HCL-MPF 1% 2ML VIAL IJ PRN (18:30)
[2020-09-03] MEDS ORDERED: ALBUMIN FOR BP SUPPORT MISC PRN (18:30)
[2020-09-03] MEDS ORDERED: NITROGLYCERIN 0.4 MG SL TAB SL PRN (18:30)
[2020-09-03] MEDS ORDERED: ACETAMINOPHEN 325 MG TAB PO PRN (18:30)
[2020-09-03] MEDS: LORAZEPAM 0.5 MG TABLET PO SCH (22:51)
[2020-09-03] MEDS: CEFEPIME HCL 2 GM VIAL IVP SCH (22:51)
[2020-09-04] VITALS (104 sets, daily range): BP systolic 43–173; BP diastolic 30–88
[2020-09-04] MEDS: MIDAZOLAM 100MG-0.9% NS 100ML 100ML BAG IV PRN ×2 (05:35→09:00)
[2020-09-04] MEDS: INSULIN HUMULIN R 100 UNIT/ML 3ML SQ SCH ×4 (06:25→23:42)
[2020-09-04 07:46] LABS: BASOPHILS % (AUTO) 0.3 % (0.0-5.0); EOSINOPHILS % (AUTO) 0.4 % (0.0-8.0); HEMATOCRIT 35.2 % (36-48); LYMPHOCYTES % (AUTO) 5.6 % (21.0-51.0); MEAN CORPUSCULAR HEMOGLOBIN 26.3 pg (27.0-33.0); MEAN CORPUSCULAR HGB CONC 28.1 g/dL (32.0-36.0); MEAN CORPUSCULAR VOLUME 93.4 fL (79-99); MONOCYTES % (AUTO) 3.4 % (3.0-13.0); NEUTROPHILS % (AUTO) 85.7 % (40.0-77.0); NUCLEATED RED BLOOD CELLS 0.1 % (0.0-0.19); PLATELET COUNT (AUTO) 439 K/uL (130-400); RED BLOOD CELL COUNT(AUTO) 3.77 MIL/uL (4.00-5.50); RED CELL DISTRIBUTION WIDTH 15.9 % (11.0-15.5)
[2020-09-04 07:56] LABS: WHITE BLOOD COUNT (AUTO) 37.9 K/uL (4.8-10.8)
[2020-09-04 08:02] LABS: ALBUMIN 1.7 g/dL (3.5-5.0); BILIRUBIN,TOTAL 1.1 mg/dL (0.2-1.0); CREATININE 6.4 mg/dL (0.5-1.5); TOTAL PROTEIN, SERUM 7.2 g/dL (6.0-8.3)
[2020-09-04 08:27] LABS: POTASSIUM 6.3 mmol/L (3.5-5.1)
[2020-09-04 08:58] LABS: BAND NEUTROPHILS % (MANUAL) 2 % (0-2); LYMPHOCYTES % (MANUAL) 4 % (22-44); MAN.DIFF COMMENT-IMPRESSION MANUAL DIFFERENTIAL; MONOCYTES % (MANUAL) 3 % (2-9); PLATELET MORPHOLOGY COMMENT SLIGHT INCREASED; SEGMENTED NEUTROPHILS % 91 % (40-70)
[2020-09-04] MEDS: ASCORBIC ACID 500 MG TAB PO SCH (08:59)
[2020-09-04] MEDS: ZINC SULFATE 220 CAPSULE PO SCH (08:59)
[2020-09-04] MEDS: FAMOTIDINE/PF 20 MG/2 ML VIAL IV SCH ×2 (08:59→23:27)
[2020-09-04] MEDS: DEXAMETHASONE SOD PHOSPHATE 4 MG/ML 1ML VIAL IVP SCH (08:59)
[2020-09-04] MEDS: FENTANYL 2500MCG+NS 250ML 250 ML IV SCH (09:01)
[2020-09-04] MEDS: VASOPRESSIN 40 UNITS in SODIUM CHLORIDE 0.9% 40 ML IV SCH (09:01)
[2020-09-04] MEDS ORDERED: PHARMACY COMMUNICATION MISC SCH ×3 (09:51→18:30)
[2020-09-04] MEDS ORDERED: CALCIUM GLUCONATE 1 GM/10 ML VIAL IV STA (09:56)
[2020-09-04] MEDS ORDERED: SODIUM BICARB 50MEQ 50ML VIAL IV SCH (09:56)
[2020-09-04 09:58] LABS: ABG BASE EXCESS -18.6 mmol/L (-2.0-3.0); ABG HCO3 15.1 mmol/L (21.0-28.0); ABG OXYGEN SATURATION 82.7 % (95.0-99.0); ABG PCO2 84 mmHg (32-45)
[2020-09-04] MEDS ORDERED: PHENYLEPHRINE 100 MG/NS 250ML IV SCH ×2 (10:00)
[2020-09-04] MEDS: ENOXAPARIN SODIUM 30 MG/0.3 ML SQ SCH ×2 (10:00→21:00)
[2020-09-04] MEDS ORDERED: CALCIUM GLUCONATE 1 GM in SODIUM CHLORIDE 0.9% 100 ML IV SCH (10:15)
[2020-09-04] MEDS ORDERED: MEROPENEM 1 GM VIAL IVP SCH (10:30)
[2020-09-04] MEDS: SODIUM BICARB 8.4% 50ML SYRING 150 MEQ in WATER FOR INJECTION,STERILE 1,000 ML IV SCH ×2 (11:30→17:44)
[2020-09-04] MEDS ORDERED: NOREPINEPHRINE 4MG/NS 250ML 250 ML IV ONE (11:54)
[2020-09-04] MEDS ORDERED: SODIUM POLYSTYRENE SULFONATE 15 GM/60 ML ML NG SCH (12:41)
[2020-09-04] MEDS: NOREPINEPHRINE BITARTRATE 32 MG in SODIUM CHLORIDE 0.9% 250 ML IV SCH ×3 (15:10→16:08)
[2020-09-04] MEDS: LINEZOLID 600 MG/ISO-OSM 300 ML IV SCH ×2 (16:00→23:28)
[2020-09-04] MEDS: ROCURONIUM BROMIDE IV SCH (16:11)
[2020-09-04] MEDS: SODIUM CHLORIDE 0.9% IV SCH (16:11)
[2020-09-04] MEDS: ACETAMINOPHEN 325 MG TAB PO PRN (16:16)
[2020-09-04 16:43] LABS: CREATININE 4.7 mg/dL (0.5-1.5)
[2020-09-04] MEDS ORDERED: MEROPENEM 1 GM VIAL ONE (17:49)
[2020-09-04] MEDS ORDERED: METOPROLOL TARTRATE 1 MG/ML 5ML VIAL IV SCH (19:15)
[2020-09-04] MEDS: LORAZEPAM 0.5 MG TABLET PO SCH (21:00)
[2020-09-04] MEDS ORDERED: METOPROLOL TARTRATE 25 MG TAB ONE (23:35)
[2020-09-05] VITALS (105 sets, daily range): BP systolic 57–143; BP diastolic 35–73
[2020-09-05 05:53] LABS: BASOPHILS % (AUTO) 0.1 % (0.0-5.0); EOSINOPHILS % (AUTO) 0.4 % (0.0-8.0); LYMPHOCYTES % (AUTO) 7.7 % (21.0-51.0); MEAN CORPUSCULAR HEMOGLOBIN 26.2 pg (27.0-33.0); MEAN CORPUSCULAR VOLUME 90.1 fL (79-99); MONOCYTES % (AUTO) 3.3 % (3.0-13.0); NEUTROPHILS % (AUTO) 85.6 % (40.0-77.0); NUCLEATED RED BLOOD CELLS 0.2 % (0.0-0.19); PLATELET COUNT (AUTO) 284 K/uL (130-400); RED BLOOD CELL COUNT(AUTO) 3.44 MIL/uL (4.00-5.50); RED CELL DISTRIBUTION WIDTH 15.9 % (11.0-15.5)
[2020-09-05 06:13] LABS: WHITE BLOOD COUNT (AUTO) 35.5 K/uL (4.8-10.8)
[2020-09-05 06:14] LABS: ALBUMIN 1.6 g/dL (3.5-5.0); BILIRUBIN,TOTAL 1.5 mg/dL (0.2-1.0); CREATININE 6.2 mg/dL (0.5-1.5); MAGNESIUM 2.1 mg/dL (1.80-2.40); POTASSIUM 3.9 mmol/L (3.5-5.1); TOTAL PROTEIN, SERUM 5.7 g/dL (6.0-8.3)
[2020-09-05 06:42] LABS: CRP QUANTITATIVE 149.9 mg/L (0.00-9.0)
[2020-09-05] MEDS: INSULIN HUMULIN R 100 UNIT/ML 3ML SQ SCH ×4 (07:30→20:02)
[2020-09-05 07:53] LABS: ABG BASE EXCESS -9.1 mmol/L (-2.0-3.0); ABG HCO3 22.9 mmol/L (21.0-28.0); ABG OXYGEN SATURATION 54.2 % (95.0-99.0); ABG PCO2 81 mmHg (32-45)
[2020-09-05] MEDS ORDERED: SODIUM BICARB 50MEQ 50ML VIAL IV STA (08:32)
[2020-09-05] MEDS: ENOXAPARIN SODIUM 30 MG/0.3 ML SQ SCH (09:00)
[2020-09-05] MEDS ORDERED: MICAFUNGIN 100MG+NS 100ML 100 ML IV SCH (09:00)
[2020-09-05] MEDS: NOREPINEPHRINE BITARTRATE 32 MG in SODIUM CHLORIDE 0.9% 250 ML IV SCH ×7 (09:59→22:41)
[2020-09-05] MEDS: SODIUM BICARB 8.4% 50ML SYRING 150 MEQ in WATER FOR INJECTION,STERILE 1,000 ML IV SCH ×3 (09:59→17:18)
[2020-09-05] MEDS: EPINEPHRINE 10 MG in SODIUM CHLORIDE 0.9% 250 ML IV SCH ×5 (10:01→22:46)
[2020-09-05] MEDS: VASOPRESSIN 40 UNITS in SODIUM CHLORIDE 0.9% 40 ML IV SCH (10:01)
[2020-09-05] MEDS: DEXAMETHASONE SOD PHOSPHATE 4 MG/ML 1ML VIAL IVP SCH (10:02)
[2020-09-05] MEDS: FAMOTIDINE/PF 20 MG/2 ML VIAL IV SCH ×2 (10:02→22:29)
[2020-09-05] MEDS: ACETAMINOPHEN 325 MG TAB PO PRN ×2 (10:02→22:29)
[2020-09-05] MEDS: ASCORBIC ACID 500 MG TAB PO SCH (10:02)
[2020-09-05] MEDS: ZINC SULFATE 220 CAPSULE PO SCH (10:03)
[2020-09-05] MEDS: MEROPENEM 1 GM VIAL IVP SCH ×2 (10:04→22:28)
[2020-09-05] MEDS: LINEZOLID 600 MG/ISO-OSM 300 ML IV SCH (10:15)
[2020-09-05] MEDS ORDERED: MIDAZOLAM 100MG-0.9% NS 100ML 50 ML IV PRN (10:45)
[2020-09-05 11:12] LABS: HEPATITIS Bs ANTIGEN SCREEN P Negative (Negative)
[2020-09-05] MEDS: MIDAZOLAM 100MG-0.9% NS 100ML 100 ML IV SCH (12:02)
[2020-09-05] MEDS ORDERED: VANCOMYCIN PROTOCOL PER PHARMACY IV SCH (14:45)
[2020-09-05] MEDS ORDERED: COMPOUND IV REFRIGERATED 1 EACH IVSOLN MISC PRN (15:15)
[2020-09-05] MEDS: VANCOMYCIN 1.5 GM in SODIUM CHLORIDE 0.9% 250 ML IV SCH (17:17)
[2020-09-05] MEDS ORDERED: NOREPINEPHRINE BIT/0.9 % NACL 250 ML IV SCH (21:00)
[2020-09-05] MEDS: LORAZEPAM 0.5 MG TABLET PO SCH (22:29)
[2020-09-06] VITALS (87 sets, daily range): BP systolic 82–159; BP diastolic 56–92
[2020-09-06] MEDS: SODIUM BICARB 8.4% 50ML SYRING 150 MEQ in WATER FOR INJECTION,STERILE 1,000 ML IV SCH ×3 (01:00→16:34)
[2020-09-06] MEDS: EPINEPHRINE 10 MG in SODIUM CHLORIDE 0.9% 250 ML IV SCH ×2 (02:59→18:17)
[2020-09-06] MEDS: NOREPINEPHRINE BITARTRATE 32 MG in SODIUM CHLORIDE 0.9% 250 ML IV SCH ×3 (03:00→18:26)
[2020-09-06] MEDS: INSULIN REGULAR, HUMAN 3ML 100 UNIT in SODIUM CHLORIDE 0.9% 99 ML IV SCH ×4 (03:02→18:25)
[2020-09-06 04:53] LABS: BASOPHILS % (AUTO) 0.3 % (0.0-5.0); EOSINOPHILS % (AUTO) 0.1 % (0.0-8.0); HEMATOCRIT 33.5 % (36-48); LYMPHOCYTES % (AUTO) 4.8 % (21.0-51.0); MEAN CORPUSCULAR HEMOGLOBIN 25.5 pg (27.0-33.0); MEAN CORPUSCULAR HGB CONC 28.1 g/dL (32.0-36.0); MONOCYTES % (AUTO) 2.5 % (3.0-13.0); NEUTROPHILS % (AUTO) 89.3 % (40.0-77.0); NUCLEATED RED BLOOD CELLS 0.1 % (0.0-0.19); PLATELET COUNT (AUTO) 160 K/uL (130-400); RED BLOOD CELL COUNT(AUTO) 3.68 MIL/uL (4.00-5.50); RED CELL DISTRIBUTION WIDTH 16.2 % (11.0-15.5)
[2020-09-06 04:58] LABS: WHITE BLOOD COUNT (AUTO) 34.3 K/uL (4.8-10.8)
[2020-09-06 05:05] LABS: POTASSIUM 3.8 mmol/L (3.5-5.1)
[2020-09-06 05:58] LABS: ALBUMIN 1.5 g/dL (3.5-5.0); BILIRUBIN,TOTAL 2.8 mg/dL (0.2-1.0); CREATININE 5.4 mg/dL (0.5-1.5); CRP QUANTITATIVE 128.2 mg/L (0.00-9.0); TOTAL PROTEIN, SERUM 5.2 g/dL (6.0-8.3)
[2020-09-06] MEDS: INSULIN HUMULIN R 100 UNIT/ML 3ML SQ SCH ×4 (06:04→20:18)
[2020-09-06] MEDS: ROCURONIUM BROMIDE IV SCH ×2 (06:13→18:20)
[2020-09-06] MEDS: SODIUM CHLORIDE 0.9% IV SCH ×2 (06:13→18:20)
[2020-09-06 06:44] LABS: ABG BASE EXCESS -1.4 mmol/L (-2.0-3.0); ABG OXYGEN SATURATION 97.1 % (95.0-99.0); ABG PCO2 134 mmHg (32-45)
[2020-09-06] MEDS: NOREPINEPHRINE BITARTRATE 16 MG in SODIUM CHLORIDE 0.9% 250 ML IV SCH ×2 (08:20→18:18)
[2020-09-06] MEDS: MEROPENEM 1 GM VIAL IVP SCH ×2 (08:33→20:35)
[2020-09-06] MEDS: DEXAMETHASONE SOD PHOSPHATE 4 MG/ML 1ML VIAL IVP SCH (08:33)
[2020-09-06] MEDS: ASCORBIC ACID 500 MG TAB PO SCH (08:33)
[2020-09-06] MEDS: FAMOTIDINE/PF 20 MG/2 ML VIAL IV SCH ×2 (08:33→20:35)
[2020-09-06] MEDS: ZINC SULFATE 220 CAPSULE PO SCH (08:33)
[2020-09-06 13:31] LABS: ABG BASE EXCESS -5.5 mmol/L (-2.0-3.0); ABG HCO3 24.6 mmol/L (21.0-28.0); ABG OXYGEN SATURATION 97.8 % (95.0-99.0); ABG PCO2 75 mmHg (32-45)
[2020-09-06] MEDS: VASOPRESSIN 40 UNITS in SODIUM CHLORIDE 0.9% 40 ML IV SCH (18:20)
[2020-09-06] MEDS: MIDAZOLAM 100MG-0.9% NS 100ML 100 ML IV SCH (18:22)
[2020-09-06] MEDS: FENTANYL 2500MCG+NS 250ML 250 ML IV SCH (18:23)
[2020-09-06] MEDS ORDERED: ARGATROBAN 250 MG/2.5 ML VIAL 250 MG in SODIUM CHLORIDE 0.9% 250 ML IV SCH (18:45)
[2020-09-06] MEDS: LORAZEPAM 0.5 MG TABLET PO SCH (20:36)
[2020-09-07] VITALS (92 sets, daily range): BP systolic -16–202; BP diastolic -20–116
[2020-09-07] MEDS: NOREPINEPHRINE BITARTRATE 32 MG in SODIUM CHLORIDE 0.9% 250 ML IV SCH ×9 (00:03→19:18)
[2020-09-07] MEDS: SODIUM BICARB 8.4% 50ML SYRING 150 MEQ in WATER FOR INJECTION,STERILE 1,000 ML IV SCH ×3 (01:17→19:51)
[2020-09-07] MEDS: MIDAZOLAM 100MG-0.9% NS 100ML 100 ML IV SCH ×2 (03:00→18:54)
[2020-09-07 03:52] LABS: INR 2.05 (0.85-1.15); PROTHROMBIN TIME 20.9 SEC (9.6-11.6)
[2020-09-07 03:53] LABS: PARTIAL THROMBOPLASTIN TIME 42.1 SEC (26.3-35.5)
[2020-09-07 05:42] LABS: BASOPHILS % (AUTO) 0.2 % (0.0-5.0); EOSINOPHILS % (AUTO) 0.8 % (0.0-8.0); HEMATOCRIT 31.9 % (36-48); LYMPHOCYTES % (AUTO) 2.6 % (21.0-51.0); MEAN CORPUSCULAR HEMOGLOBIN 25.7 pg (27.0-33.0); MEAN CORPUSCULAR HGB CONC 29.8 g/dL (32.0-36.0); MEAN CORPUSCULAR VOLUME 86.2 fL (79-99); MONOCYTES % (AUTO) 2.2 % (3.0-13.0); NEUTROPHILS % (AUTO) 89.3 % (40.0-77.0); PLATELET COUNT (AUTO) 98 K/uL (130-400); WHITE BLOOD COUNT (AUTO) 26.3 K/uL (4.8-10.8)
[2020-09-07 05:49] LABS: ABG BASE EXCESS -4.5 mmol/L (-2.0-3.0); ABG HCO3 23.7 mmol/L (21.0-28.0); ABG OXYGEN SATURATION 94.8 % (95.0-99.0); ABG PCO2 56 mmHg (32-45)
[2020-09-07 05:55] LABS: ALBUMIN 1.4 g/dL (3.5-5.0); BILIRUBIN,TOTAL 3.1 mg/dL (0.2-1.0); CRP QUANTITATIVE 106.8 mg/L (0.00-9.0); TOTAL PROTEIN, SERUM 5.2 g/dL (6.0-8.3)
[2020-09-07] MEDS: INSULIN HUMULIN R 100 UNIT/ML 3ML SQ SCH ×4 (07:30→21:00)
[2020-09-07] MEDS: DEXAMETHASONE SOD PHOSPHATE 4 MG/ML 1ML VIAL IVP SCH (08:45)
[2020-09-07] MEDS: FAMOTIDINE/PF 20 MG/2 ML VIAL IV SCH ×2 (08:45→20:00)
[2020-09-07] MEDS: MEROPENEM 1 GM VIAL IVP SCH ×2 (08:45→20:00)
[2020-09-07] MEDS: ASCORBIC ACID 500 MG TAB PO SCH (08:45)
[2020-09-07] MEDS: ZINC SULFATE 220 CAPSULE PO SCH (08:46)
[2020-09-07] MEDS: ROCURONIUM BROMIDE IV SCH (08:51)
[2020-09-07] MEDS: SODIUM CHLORIDE 0.9% IV SCH (08:51)
[2020-09-07] MEDS: VASOPRESSIN 40 UNITS in SODIUM CHLORIDE 0.9% 40 ML IV SCH (08:53)
[2020-09-07 09:02] LABS: INR 2.22 (0.85-1.15); PROTHROMBIN TIME 22.5 SEC (9.6-11.6)
[2020-09-07 09:03] LABS: PARTIAL THROMBOPLASTIN TIME 34.2 SEC (26.3-35.5)
[2020-09-07] MEDS ORDERED: DEXTROSE 50%-WATER 50 ML DISP.SYRIN IV PRN ×2 (13:00→17:15)
[2020-09-07] MEDS ORDERED: GLUCAGON 1MG KIT 1 MG ML IM PRN ×2 (13:00→17:15)
[2020-09-07] MEDS ORDERED: ALBUMIN (HUMAN) 25% 100 ML IV ONE ×2 (14:24→14:25)
[2020-09-07 15:14] LABS: ABG BASE EXCESS -13.7 mmol/L (-2.0-3.0); ABG HCO3 17.4 mmol/L (21.0-28.0); ABG OXYGEN SATURATION 73.4 % (95.0-99.0); ABG PCO2 63 mmHg (32-45)
[2020-09-07 15:18] LABS: HEMATOCRIT 24.8 % (36-48); MEAN CORPUSCULAR HGB CONC 28.2 g/dL (32.0-36.0); MEAN CORPUSCULAR VOLUME 92.2 fL (79-99); NUCLEATED RED BLOOD CELLS 0.1 % (0.0-0.19); PLATELET COUNT (AUTO) 72 K/uL (130-400); RED BLOOD CELL COUNT(AUTO) 2.69 MIL/uL (4.00-5.50); RED CELL DISTRIBUTION WIDTH 16.4 % (11.0-15.5); WHITE BLOOD COUNT (AUTO) 23.9 K/uL (4.8-10.8)
[2020-09-07 15:51] LABS: ALBUMIN 1.7 g/dL (3.5-5.0); BILIRUBIN,TOTAL 2.7 mg/dL (0.2-1.0); MAGNESIUM 1.8 mg/dL (1.80-2.40); PHOSPHORUS 11.6 mg/dL (2.5-4.9); TOTAL PROTEIN, SERUM 5.1 g/dL (6.0-8.3)
[2020-09-07] MEDS ORDERED: SODIUM CHLORIDE 0.9% 100 ML IV ONE ×2 (15:58→16:43)
[2020-09-07 16:02] LABS: BAND NEUTROPHILS % (MANUAL) 3 % (0-2); LYMPHOCYTES % (MANUAL) 10 % (22-44); MAN.DIFF COMMENT-IMPRESSION MANUAL DIFFERENTIAL; MONOCYTES % (MANUAL) 3 % (2-9); SEGMENTED NEUTROPHILS % 84 % (40-70)
[2020-09-07] MEDS ORDERED: CALCIUM GLUCONATE 1 GM/10 ML VIAL IV SCH (17:15)
[2020-09-07] MEDS: VANCOMYCIN 1.5 GM in SODIUM CHLORIDE 0.9% 250 ML IV SCH (17:37)
[2020-09-07] MEDS: EPINEPHRINE 10 MG in SODIUM CHLORIDE 0.9% 250 ML IV SCH ×7 (18:54→19:16)
[2020-09-07] MEDS: NOREPINEPHRINE BITARTRATE 16 MG in SODIUM CHLORIDE 0.9% 250 ML IV SCH (18:55)
[2020-09-07 20:17] LABS: HEMATOCRIT 21.2 % (36-48)
[2020-09-07] MEDS ORDERED: CALCIUM GLUCONATE 1 GM in SODIUM CHLORIDE 0.9% 100 ML IV SCH (20:30)
[2020-09-07] MEDS: LORAZEPAM 0.5 MG TABLET PO SCH (21:00)
[2020-09-08] VITALS (14 sets, daily range): BP systolic 13–15; BP diastolic 6–8
[2020-09-08] MEDS ORDERED: EPINEPHRINE 1 MG/ML AMPULE ONE ×2 (00:39→00:48)
[2020-09-08] MEDS ORDERED: CALCIUM GLUCONATE 1 GM/10 ML VIAL IV ONE (00:49)
[2020-09-08] MEDS: SODIUM BICARB 8.4% 50ML SYRING 150 MEQ in WATER FOR INJECTION,STERILE 1,000 ML IV SCH (01:30)
== END 2020-09-08 03:15 | disposition expired | DRG 207 ==
LOC: EDH 18:22 → EDHIP 18:23 → 2AH 08-27 22:29 → 2CV 09-02 17:55
PROVIDERS: ADMIT Family Medicine; ATTEND Family Medicine
PROC: XW13325 Transfusion of Convalescent Plasma (Nonautologous) into Peripheral Vein, Percutaneous Approach, New Technology Group 5 (ICD-10-PCS; 2020-08-27)
PROC: 5A0935A Assistance with Respiratory Ventilation, Less than 24 Consecutive Hours, High Flow/Velocity Cannula (ICD-10-PCS; 2020-08-27)
PROC: 5A0935A Assistance with Respiratory Ventilation, Less than 24 Consecutive Hours, High Flow/Velocity Cannula (ICD-10-PCS; 2020-08-28)
PROC: 5A0935A Assistance with Respiratory Ventilation, Less than 24 Consecutive Hours, High Flow/Velocity Cannula (ICD-10-PCS; 2020-08-29)
PROC: XW033E5 Introduction of Remdesivir Anti-infective into Peripheral Vein, Percutaneous Approach, New Technology Group 5 (ICD-10-PCS; 2020-08-30)
PROC: 5A0935A Assistance with Respiratory Ventilation, Less than 24 Consecutive Hours, High Flow/Velocity Cannula (ICD-10-PCS; 2020-08-30)
PROC: 5A0935A Assistance with Respiratory Ventilation, Less than 24 Consecutive Hours, High Flow/Velocity Cannula (ICD-10-PCS; 2020-08-31)
PROC: 5A09357 Assistance with Respiratory Ventilation, Less than 24 Consecutive Hours, Continuous Positive Airway Pressure (ICD-10-PCS; 2020-08-31)
PROC: 5A0935A Assistance with Respiratory Ventilation, Less than 24 Consecutive Hours, High Flow/Velocity Cannula (ICD-10-PCS; 2020-09-01)
PROC: 5A09357 Assistance with Respiratory Ventilation, Less than 24 Consecutive Hours, Continuous Positive Airway Pressure (ICD-10-PCS; 2020-09-01)
PROC: 5A1955Z Respiratory Ventilation, Greater than 96 Consecutive Hours (ICD-10-PCS; principal; 2020-09-02)
PROC: 0BH17EZ Insertion of Endotracheal Airway into Trachea, Via Natural or Artificial Opening (ICD-10-PCS; 2020-09-02)
PROC: 5A09357 Assistance with Respiratory Ventilation, Less than 24 Consecutive Hours, Continuous Positive Airway Pressure (ICD-10-PCS; 2020-09-02)
PROC: 05HY33Z Insertion of Infusion Device into Upper Vein, Percutaneous Approach (ICD-10-PCS; 2020-09-03)
PROC: 5A1D70Z Performance of Urinary Filtration, Intermittent, Less than 6 Hours Per Day (ICD-10-PCS; 2020-09-03)
PROC: 5A1D70Z Performance of Urinary Filtration, Intermittent, Less than 6 Hours Per Day (ICD-10-PCS; 2020-09-04)
PROC: 5A1D70Z Performance of Urinary Filtration, Intermittent, Less than 6 Hours Per Day (ICD-10-PCS; 2020-09-05)
PROC: 5A1D70Z Performance of Urinary Filtration, Intermittent, Less than 6 Hours Per Day (ICD-10-PCS; 2020-09-06)
PROC: 5A1D70Z Performance of Urinary Filtration, Intermittent, Less than 6 Hours Per Day (ICD-10-PCS; 2020-09-07)
PROC: 5A12012 Performance of Cardiac Output, Single, Manual (ICD-10-PCS; 2020-09-07)
DX: U07.1 COVID-19 (principal); J12.82 Pneumonia due to coronavirus disease 2019; J80 Acute respiratory distress syndrome; K72.00 Acute and subacute hepatic failure without coma; R65.21 Severe sepsis with septic shock; A41.89 Other specified sepsis; Z68.43 Body mass index [BMI] 50.0-59.9, adult; N39.0 Urinary tract infection, site not specified; E87.4 Mixed disorder of acid-base balance; N17.9 Acute kidney failure, unspecified; G93.40 Encephalopathy, unspecified; Z66 Do not resuscitate; I46.8 Cardiac arrest due to other underlying condition; T38.0X5A Adverse effect of glucocorticoids and synthetic analogues, initial encounter; E87.5 Hyperkalemia; E87.6 Hypokalemia; E66.01 Morbid (severe) obesity due to excess calories; K75.89 Other specified inflammatory liver diseases; E11.65 Type 2 diabetes mellitus with hyperglycemia; I12.9 Hypertensive chronic kidney disease with stage 1 through stage 4 chronic kidney disease, or unspecified chronic kidney disease; N18.2 Chronic kidney disease, stage 2 (mild); E11.649 Type 2 diabetes mellitus with hypoglycemia without coma; E11.22 Type 2 diabetes mellitus with diabetic chronic kidney disease; E78.5 Hyperlipidemia, unspecified; D64.9 Anemia, unspecified; Z83.3 Family history of diabetes mellitus; Z79.4 Long term (current) use of insulin; Y92.89 Other specified places as the place of occurrence of the external cause
CPT/HCPCS: 31500; 36415; 36600; 71045; 76770; 80048; 80053; 80061; 80202; 81001; 81025; 82040; 82140; 82435; 82550; 82565; 82570; 82728; 82803; 82947; 82948; 83036; 83540; 83550; 83605; 83615; 83735; 83874; 83880; 84100; 84132; 84145; 84156; 84260; 84295; 84484; 84520; 85014; 85018; 85025; 85378; 85610; 85651; 85730; 86022; 86140; 86701; 86704; 86706; 86850; 86900; 86901; 86923; 86927; 87040; 87070; 87076; 87077; 87088; 87186; 87340; 87390; 87426; 87520; 90935; 92950; 93005; 93970; 94002; 94003; 94660; 99291; G0378; J0171; J0610; J0692; J0696; J0883; J1100; J1644; J1650; J1815; J1940; J2020; J2060; J2185; J2248; J2250; J2370; J2704; J3010; J3370; J3480; J3490; J7040; J7050; J7070; P9046